=== PATIENT | female | born 1985 | race Two or more races ===

== ENCOUNTER 2023-05-16 17:59 | Emergency (ER) | payer OTHER ==
[~2023-05-16] VITALS: Ht 157.5 cm; Wt 73.5 kg
== END 2023-05-16 22:02 | disposition home or self-care (01) ==
LOC: ER 17:59
PROVIDERS: General Practice
DX: N30.90 Cystitis, unspecified without hematuria (principal); N20.0 Calculus of kidney; Z88.8 Allergy status to other drugs, medicaments and biological substances